=== PATIENT | male | born 1980 | race Caucasian/White ===

== ENCOUNTER 2022-01-11 19:06 | Emergency (ER) | payer SELFPAY ==
[2022-01-11 19:13] VITALS: BP 151/91; PULSE 77; RESP 18; TEMP 37.1; O2SAT 97
--- NOTE | 2022-01-11 20:19 | ED_ITS ---
HPI - Wound/Laceration General Chief Complaint: Laceration/Wound Stated Complaint: Thumb Lac Time Seen by Provider: 01/11/22 19:19 Source: patient, family and RN notes reviewed History of Present Illness HPI narrative: 41-year-old man presenting to the emergency department after sustaining a cut to his left thumb. 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 Cut at that point. 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 realized that this wound would require suturing due to depth. Is not feeling lightheaded or short of air. Not describing loss of sensation. Current on tetanus Related Data Allergies Allergy/AdvReac Type Severity Reaction Status Date / Time No Known Drug Allergies Allergy Verified 01/11/22 19:16 Review of Systems Status of ROS: Reports: 6 or more systems reviewed and unremarkable except as noted in History and below [facility] Social History Smoking Status: Never smoker Do you use any of these nicotine containing products: None Second hand tobacco smoke exposure: No How often do you have a drink containing alcohol: monthly or less How often do you have six or more drinks on one occasion: Never AUDIT-C Alcohol total score: 1 Non-prescribed substance use: denies use Exam Narrative: Exam Narrative: pleasant. NAD. Holding paper towels to his left hand. They are stained with blood. breathing easily. Cardiovascular-regular rate and rhythm. Removing paper towel from his left hand shows an irregular laceration the base of the palmar surface of the thumb. Gapping. Bleeds easily when manipulated. Small transected vessel is evident. wound inch and 1/8th in total length Const: Vital Signs, click to edit/add: Vital Signs - 24 hr 01/11/22 19:13 Temperature 98.8 F Pulse Rate [Pulse Oximeter] 77 Respiratory Rate 18 Blood Pressure [Ri ght Upper Arm] 151/91 H Pulse Oximetry 97 Documenting provider has reviewed patient's vital signs: yes Course Course Hospital Course: Return to digital block with 1% lidocaine. Excellent wound anesthesia achieved. Cleaned then with a Hibiclens and water solution.. Placed 7 interrupted 5-0 Ethilon sutures. Excellent wound approximation achieved the still oozing blood not unexpected. Did bleed quite a bit during repair. Antibiotic ointment Band-Aid and then light pressure dressing with Debi Gauzewas applied. Vital Signs Vital signs: Initial Vital Signs Temperature 98.8 F 01/11/22 19:13 Temperature Source Temporal Artery Scan 01/11/22 19:13 Pulse Rate 77 01/11/22 19:13 Pulse Rhythm 01/11/22 19:13 Respiratory Rate 18 01/11/22 19:13 Blood Pressure 151/91 H 01/11/22 19:13 Blood Pressure Mean 111 01/11/22 19:13 Blood Pressure Position Sitting 01/11/22 19:13 Pulse Oximetry 97 01/11/22 19:13 Oxygen Delivery Method 01/11/22 19:13 Vital Signs Temperature 98.8 F 01/11/22 19:13 Pulse Rate 77 01/11/22 19:13 Respiratory Rate 18 01/11/22 19:13 Blood Pressure 151/91 H 01/11/22 19:13 Pulse Oximetry 97 01/11/22 19:13 Temperature 98.8 F 01/11/22 19:13 Pulse Rate 77 01/11/22 19:13 Respiratory Rate 18 01/11/22 19:13 Blood Pressure 151/91 H 01/11/22 19:13 Pulse Oximetry 97 01/11/22 19:13 MDM - Wound/Laceration MDM Narrative Medical decision making narrative: see above. Medical Records Attestation: I reviewed the patient's medical records. Discharge Plan Discharge Clinical Impression: Laceration of thumb Patient Disposition: Home, Self-Care Condition: Improved Additional Instructions: elevate for comfort. Ibuprofen or acetaminophen for pain. If you bleed through this dressing, re-dress. If you bleed through that return to the emergency department. Leave current dressing on until late tomorrow or even Wednesday morning. expect anesthetic to wear off in a couple of hours. If the end of your thumb is purple-mariann and uncomfortable, can loosen numerous layers of dressing. otherwise thumb should pink up to pressure in 3-5 seconds. sutures out in 8-10 days. antibiotic ointment for 5 days and then to a dry dressing. ok to get wet but try not to soak while sutures are in. ? Watch for spreading redness after 2 days accompanied by heat, swelling, marked increase in pain and maybe even purulent drainage. ? Stand Alone Forms: MyHealth Info Instructions
== END 2022-01-11 20:50 | disposition home or self-care (01) ==
LOC: ED 20:45
PROVIDERS: Emergency Provider Family Medicine; PCP Family Medicine
DX: S61.012A Laceration without foreign body of left thumb without damage to nail, initial encounter (principal); W29.0XXA Contact with powered kitchen appliance, initial encounter
CPT/HCPCS: 12001; 99281; 99282

== ENCOUNTER 2024-04-03 11:33 | Outpatient (CLI) | payer OTHER, SELFPAY | END 2024-04-03 11:34 | disposition home or self-care (01) | LOC: NFLDREF 11:34 | PROVIDERS: Visit Provider Registered Nurse | DX: Z01.818 Encounter for other preprocedural examination (principal) | CPT/HCPCS: 80048 ==